=== PATIENT | female | born 1955 | race Caucasian/White ===

== ENCOUNTER → 2017-01-15 | Outpatient (CLI) | payer BC, OTHER ==
[~2017-01-15] MED LIST: AMBIEN10 MG PO; ASPIRIN81 M1 PO; CALCIUM; CRESTOR; DIATX TABLET5 MG; DIOVAN; DIOVAN HCT 80/11 TAB; FIORINAL CAPSUL1 CAP; LISINOPRIL PO; METFORMIN; MUCINEX DM1 TAB.SR . PO; MULTI-VITAMIN1 TAB; VOLTAREN75 MG PO; WELLBUTRIN; WELLBUTRIN SR; ZOCOR PO; ZYRTEC
--- NOTE | ~2017-01-15 | MR17 ---
[facility] A Service of [facility] RADIOLOGY TEXT RESULTS PATIENT: SILVIA EUGENE LOCATION: [facility] : 59 UNIT #: [id number] AGE: [address]: Mehul Ramesh MD SEX: F ORDER DR: [id number] [address] [address] [id number] O MR#: [id number] Acc #: [id number] NAME: SILVIA EUGENE : 1955 SEX: F STUDY DATE/TIME: 01/15/2017 16:20 UNIT: [facility] ROOM: STUDY DESCRIPTION: MR Brain WWo Contrast Attending Physician: Mehul Ramesh M.D. Referring Physician: Mehul Ramesh M.D. Ordering Physician: Mehul Ramesh M.D. Primary Care Physician: Mehul Ramesh M.D. MRI CENTER REPORT This report is preliminary unless electronic signature is present. EXAM Brain MRI with and without contrast 01/15/2017 PROCEDURE Routine brain MRI with and without contrast. COMPARISON Prior MRI dated 02/15/2014 from an outside facility. HISTORY Dizziness and muscle cramping, intermittent for 6 months. FINDINGS There is no MR evidence of acute ischemia. There is no hydrocephalus or extraaxial fluid collection. The brain is structurally normal. There are nonspecific subcortical and periventricular white matter changes, but brain parenchymal signal is by and large normal. Normal flow voids are seen in the cerebral vessels. The extracranial soft tissues are unremarkable and there is no evidence of acute or chronic intracranial hemorrhage. Postcontrast images show no evidence of mass or abnormal enhancement. IMPRESSION Essentially normal for age brain MR with and without contrast. There is some nonspecific white matter change but it is mostly stable when compared to the prior MRI from 02/15/2014. No suspicious lesions or new lesions are convincingly demonstrated. No mass or abnormal enhancement or other acute abnormality is identified. [facility] A Service [facility] RADIOLOGY TEXT RESULTS PATIENT: SILVIA EUGENE LOCATION: [facility] : 59 UNIT #: [id number] AGE: [address]: Mehul Ramesh MD SEX: F ORDER DR: Dictated by... Yasir Mahoney M.D. THIS IS AN ELECTRONICALLY VERIFIED REPORT Yasir Mahoney M.D. at 01/17/2017 4:57 PM TEV/mjs TD: 01/17/2017 14:15 JOB #: [id number] MRI CENTER REPORT Page 1 of 1
== END | disposition home or self-care (01) ==
LOC: SMRI 15:35
DX: R93.0 Abnormal findings on diagnostic imaging of skull and head, not elsewhere classified (principal); R43.0 Anosmia; M62.81 Muscle weakness (generalized); R41.3 Other amnesia; G31.9 Degenerative disease of nervous system, unspecified
CPT/HCPCS: 70553; A9581